=== PATIENT | female | born 1940 | race Caucasian/White ===

== ENCOUNTER → 2016-10-31 17:15 | Outpatient (CLI) | payer MEDICARE, OTHER | END | disposition home or self-care (01) | LOC: D.MAMMO 10-17 15:00 | DX: Z12.31 Encounter for screening mammogram for malignant neoplasm of breast (principal) ==

== ENCOUNTER 2018-10-04 17:24 | Emergency (ER) | payer MEDICARE, OTHER ==
[~2018-10-04] VITALS: Ht 157.5 cm; Wt 86.4 kg
[2018-10-04 17:26] VITALS: Ht 157.5 cm; Wt 86.4 kg
[2018-10-04] MEDS ORDERED: NORVASC5 MG PO (17:28)
[2018-10-04] MEDS ORDERED: LISINOPRIL5 MG PO (17:29)
[2018-10-04] MEDS ORDERED: ESTRACE 0.5 MG0.5 MG PO (17:29)
[2018-10-04] MEDS ORDERED: LEVOXYL25 MCG PO (17:29)
[2018-10-04] MEDS ORDERED: ATIVAN1 MG PO (17:30)
[2018-10-04] MEDS ORDERED: ULTRAM50 MG PO (20:20)
[2018-10-04 20:55] VITALS: BP 132/82
== END 2018-10-04 20:56 | disposition home or self-care (01) ==
LOC: D.ER 17:24
DX: M16.11 Unilateral primary osteoarthritis, right hip (principal); I10 Essential (primary) hypertension; K21.9 Gastro-esophageal reflux disease without esophagitis